=== PATIENT | male | born 1945 | race Hispanic/Latino ===

== ENCOUNTER 2020-05-21 14:16 | Emergency (ER) | payer OTHER ==
[~2020-05-21] VITALS: Ht 167.6 cm; Wt 79.8 kg
[2020-05-21] MEDS ORDERED: SODIUM CHLORIDE 0.9% 1000ML 1,000 ML IV STA ×2 (15:12→16:13)
[2020-05-21] MEDS ORDERED: ALBUTEROL SULFATE HFA 8GM INHALATION AEROSOL INH PRN (15:15)
[2020-05-21] MEDS ORDERED: ASPIRIN 81 MG CHEW TAB PO ONE (15:15)
[2020-05-21] MEDS ORDERED: ACETAMINOPHEN 325 MG TAB PO ONE ×2 (15:15→18:00)
--- NOTE | 2020-05-21 15:19 | Emergency Department Note ---
History of Present Illnes History of Present Illness Chief Complaint: COVID PUI History of Present Illness This is a 74 year old male c/o diarrhea sob x [address] Hunter's office had covid test pending results placed on omnicef and levaquin PATIENT IN FROM HOME WITH COMPLAINTS OF DIARRHEA AND SHORTNESS OF BREATH X 1 WEEK; STATES WAS SEEN AT DR HUNTER'S OFFICE AND HAD COVID SWAB AND WAS GIVEN ABX; PATIENT APPEARS IN NO DISTRESS, WAS GIVEN OSELTAMIVIR AND LEVAQUIN. Historian: Patient Arrival Mode: Car Radiation: Denies non-radiation, Denies back, Denies neck, Denies extremity, Denies abdomen, Denies periumbilical, Denies flank, Denies proximal, Denies distal, Denies other Onset quality: gradual Duration (how long): week(s) (1) Timing of current episode: constant Progression: worsening Context: Denies recent illness, Denies recent surgery, Denies recent immobilization, Denies recent travel, Denies trauma/injury, Denies new medications, Denies hx of DVT/PE, Denies non-compliance w/ medications, Denies other Relieving factors: none Exacerbating factors: none Associated symptoms: Denies denies other symptoms, Denies confusion, Denies chest pain, Denies cough, Denies diaphoresis, Denies fever/chills, Denies headaches, Denies loss of appetite, Denies malaise, Denies nausea/vomiting, Denies rash, Denies seizure, Denies shortness of breath, Denies syncope, Denies weakness, Denies other Treatments prior to arrival: none Past Medical/Family History Physician Review I have reviewed the patient's past medical and family history. Any updates have been documented here. Past Medical History Recent Fever: Yes Clinical Suspicion of Infectio: Yes New/Unexplained Change in Ment: No Past Medical History: Hypertension, Diabetes, Hyperlipedemia Past Surgical History: None Social History Smoking Cessation: Never Smoker Alcohol Use: None Any Illegal Drug Use: No TB Exposure/Symptoms: No Physically hurt or threatened: No Family History Family history of heart diseas: No Other Any Pre-Existing Lines (PICC,: No Review of Systems Review of Systems Constitutional: Reports fever EENTM: Reports no symptoms Cardiovascular: Reports no symptoms Respiratory: Reports cough, Reports pain with cough, Reports dyspnea Gastrointestinal: Reports no symptoms Genitourinary: Reports no symptoms Musculoskeletal: Reports no symptoms Integumentary: Reports no symptoms Neurological: Reports no symptoms Psychological: Reports no symptoms Endocrine: Reports no symptoms Hematological/Lymphatic: Reports no symptoms Physical Exam Related Data Allergies: Coded Allergies: No Known Allergies (Unverified , 05/21/20) Triage Vital Signs Vital Signs Date Time Temp Pulse Resp B/P (MAP) Pulse Ox O2 Delivery O2 Flow Rate FiO2 05/21/20 15:05 102.2 111 20 124/69 94 Room Air Vital signs reviewed: Yes Physical Exam CONSTITUTIONAL Constitutional: Present well-developed, Present well-nourished, Present other (noted fever) HENT HENT: Present normocephalic, Present atraumatic, Present oropharynx clear/moist, Present nose normal HENT L/R: Present left ext ear normal, Present right ext ear normal EYES Eyes: Reports PERRL, Reports conjunctivae normal NECK Neck: Present ROM normal PULMONARY Pulmonary: Present effort normal, Present other (pleural rub noted thoughout); Absent breath sounds normal (deminished lungs sound lower lobes ), Absent respiratory distress CARDIOVASCULAR Cardiovascular: Present regular rhythm, Present heart sounds normal, Present capillary refill normal, Present normal rate GASTROINTESTINAL Abdominal: Present soft, Present nontender, Present bowel sounds normal GENITOURINARY Genitourinary: Present exam deferred SKIN Skin: Present warm, Present dry MUSCULOSKELETAL Musculoskeletal: Present ROM normal NEUROLOGICAL Neurological: Present alert, Present oriented x 3, Present no gross motor or sensory deficits PSYCHOLOGICAL Psychological: Present mood/affect normal, Present judgement normal Results Laboratory Laboratory Laboratory Tests Test 05/21/20 18:10 05/21/20 15:17 05/21/20 15:00 Group A Streptococcus Screen Negative (NEGATIVE) White Blood Count 8.08 x10e3/uL (4.8-10.8) Red Blood Count 4.05 x10e6/uL (4.3-5.7) Hemoglobin 11.1 g/dL (14.0-18.0) Hematocrit 34.4 % (38.2-49.6) Mean Corpuscular Volume 84.9 fL (81-99) Mean Corpuscular Hemoglobin 27.4 pg (28-32) Mean Corpuscular Hemoglobin Concent 32.3 g/dL (31-35) Red Cell Distribution Width 14.5 % (11.7-14.4) Platelet Count 265 x10e3/uL (140-360) Neutrophils (%) (Auto) 79.2 % (38.7-80.0) Lymphocytes (%) (Auto) 10.1 % (18.0-39.1) Monocytes (%) (Auto) 9.7 % (4.4-11.3) Eosinophils (%) (Auto) 0.0 % (0.0-6.0) Basophils (%) (Auto) 0.1 % (0.0-1.0) Neutrophils # (Auto) 6.4 (2.1-6.9) Lymphocytes # (Auto) 0.8 (1.0-3.2) Monocytes # (Auto) 0.8 (0.2-0.8) Eosinophils # (Auto) 0.0 (0.0-0.4) Basophils # (Auto) 0.0 (0.0-0.1) Absolute Immature Granulocyte (auto 0.07 x10e3/uL (0-0.1) Prothrombin Time 13.2 seconds (11.9-14.5) Prothromb Time International Ratio 0.95 Activated Partial Thromboplast Time 37.7 seconds (23.8-35.5) Sodium Level 134 mmol/L (136-145) Potassium Level 3.5 mmol/L (3.5-5.1) Chloride Level 97 mmol/L (98-107) Carbon Dioxide Level 25 mmol/L (22-29) Anion Gap 15.5 mmol/L (8-16) Blood Urea Nitrogen 17 mg/dL (7-26) Creatinine 1.20 mg/dL (0.72-1.25) Estimat Glomerular Filtration Rate 59 ML/MIN (60-) BUN/Creatinine Ratio 14 (6-25) Glucose Level 139 mg/dL (74-118) Lactic Acid Level 2.2 mmol/L (0.5-2.0) Calcium Level 9.2 mg/dL (8.4-10.2) Total Bilirubin 0.5 mg/dL (0.2-1.2) Aspartate Amino Transf (AST/SGOT) 47 IU/L (5-34) Alanine Aminotransferase (ALT/SGPT) 31 IU/L (0-55) Alkaline Phosphatase 64 IU/L (40-150) Creatine Kinase 233 IU/L (30-200) Creatine Kinase MB 1.00 ng/mL (0-5.0) Troponin I < 0.001 ng/mL (0-0.300) B-Type Natriuretic Peptide 13.3 pg/mL (0-100) Total Protein 8.1 g/dL (6.5-8.1) Albumin 3.0 g/dL (3.5-5.0) Globulin 5.1 g/dL (2.3-3.5) Albumin/Globulin Ratio 0.6 (0.8-2.0) Lipase 19 U/L (8-78) Influenza Virus Types A,B Antigen Negative (NEGATIVE) Laboratory Tests Test 05/21/20 15:17 05/21/20 15:00 Group A Streptococcus Screen Negative (NEGATIVE) White Blood Count 8.08 x10e3/uL (4.8-10.8) Red Blood Count 4.05 x10e6/uL (4.3-5.7) Hemoglobin 11.1 g/dL (14.0-18.0) Hematocrit 34.4 % (38.2-49.6) Mean Corpuscular Volume 84.9 fL (81-99) Mean Corpuscular Hemoglobin 27.4 pg (28-32) Mean Corpuscular Hemoglobin Concent 32.3 g/dL (31-35) Red Cell Distribution Width 14.5 % (11.7-14.4) Platelet Count 265 x10e3/uL (140-360) Neutrophils (%) (Auto) 79.2 % (38.7-80.0) Lymphocytes (%) (Auto) 10.1 % (18.0-39.1) Monocytes (%) (Auto) 9.7 % (4.4-11.3) Eosinophils (%) (Auto) 0.0 % (0.0-6.0) Basophils (%) (Auto) 0.1 % (0.0-1.0) Neutrophils # (Auto) 6.4 (2.1-6.9) Lymphocytes # (Auto) 0.8 (1.0-3.2) Monocytes # (Auto) 0.8 (0.2-0.8) Eosinophils # (Auto) 0.0 (0.0-0.4) Basophils # (Auto) 0.0 (0.0-0.1) Absolute Immature Granulocyte (auto 0.07 x10e3/uL (0-0.1) Prothrombin Time 13.2 seconds (11.9-14.5) Prothromb Time International Ratio 0.95 Activated Partial Thromboplast Time 37.7 seconds (23.8-35.5) Sodium Level 134 mmol/L (136-145) Potassium Level 3.5 mmol/L (3.5-5.1) Chloride Level 97 mmol/L (98-107) Carbon Dioxide Level 25 mmol/L (22-29) Anion Gap 15.5 mmol/L (8-16) Blood Urea Nitrogen 17 mg/dL (7-26) Creatinine 1.20 mg/dL (0.72-1.25) Estimat Glomerular Filtration Rate 59 ML/MIN (60-) BUN/Creatinine Ratio 14 (6-25) Glucose Level 139 mg/dL (74-118) Lactic Acid Level 2.2 mmol/L (0.5-2.0) Calcium Level 9.2 mg/dL (8.4-10.2) Total Bilirubin 0.5 mg/dL (0.2-1.2) Aspartate Amino Transf (AST/SGOT) 47 IU/L (5-34) Alanine Aminotransferase (ALT/SGPT) 31 IU/L (0-55) Alkaline Phosphatase 64 IU/L (40-150) Creatine Kinase 233 IU/L (30-200) Creatine Kinase MB 1.00 ng/mL (0-5.0) Troponin I < 0.001 ng/mL (0-0.300) B-Type Natriuretic Peptide 13.3 pg/mL (0-100) Total Protein 8.1 g/dL (6.5-8.1) Albumin 3.0 g/dL (3.5-5.0) Globulin 5.1 g/dL (2.3-3.5) Albumin/Globulin Ratio 0.6 (0.8-2.0) Lipase 19 U/L (8-78) Influenza Virus Types A,B Antigen Negative (NEGATIVE) Lab results reviewed: Yes Laboratory comments rept lactic 1.3 Imaging Impressions Patient Name: JULI SOFIA MR #: [id number] : 1945 Age/Sex: 74/M Req #: [id number] Adm Physician: Ordered by: ROBERT PAYNE MD, MD Report #: [id number] Location: ER Room/Bed: Procedure: [id number] DX/CHEST SINGLE (PORTABLE) Exam Date: 05/21/20 Exam Time: 1530 REPORT STATUS: Signed EXAMINATION: CHEST SINGLE (PORTABLE) INDICATION: ^Y ^ERMD ORDER ^[id number] ^1530 ^Y COMPARISON: None FINDINGS: AP view TUBES and LINES: None. LUNGS: Lungs are well inflated. Diffuse bilateral lower lobe dense consolidations. Mild hilar reticular opacity with peribronchial wall thickening. PLEURA: No pleural effusion or pneumothorax. HEART AND MEDIASTINUM: Mild enlargement of the cardiac silhouette. Atherosclerotic calcifications of the aortic arch. BONES AND SOFT TISSUES: No acute osseous lesion. Soft tissues are unremarkable. UPPER ABDOMEN: No free air under the diaphragm. IMPRESSION: Bilateral reticular opacities with dense consolidations in the lower lobes suggestive of interstitial edema with or without superimposed multifocal pneumonia. Recommend follow-up chest radiograph after diuresis. Signed by: Dr. Sari Castanon M.D. on 05/21/2020 4:55 PM Procedures 12 Lead ECG Interpretation ECG Interpretation : ECG: ECG 1 [employer] Architect: Interpreted by ED physician Date: May 21, 2020 Time: 15:11 Prior ECG tracings: reviewed Rhythm: sinus tachycardia Rate: tachycardia BPM: 107 QRS axis: left Assessment & Plan Medical Decision Making MDM This is a 74 year old male c/o cp diarrhea sob x [address] Hunter's office had covid test pending results placed on omnicef and levaquin ordered lab cxr ekg medicated w/ rocephin zithromax tylenol albuterol asa d/d pne / covid / viral illness / electrolyte imbalance / sepsis / acs Reassessment Reassessment 1505 hr 111 temp 102.2 o2 sat 94% rm air suspect sepsis source resp lactic and blood cultures ordered 1515 pt medicated w/ rocephin zithromax 1603 severe sepsis 1st lactic 2.2 2nd ns bolus ordered 2nd lactic 1.3 spoke w/ Dr Scott [place] [facility] [place] [facility] [place] medicated w/ lovenox 8ou sq given per request Assessment & Plan Final Impression: (1) Sepsis (2) Pneumonia Depart Disposition: TRANS TO OTHER [facility] Last Vital Signs Date Time Temp Pulse Resp B/P (MAP) Pulse Ox O2 Delivery O2 Flow Rate FiO2 05/21/20 15:05 102.2 111 20 124/69 94 Room Air Medications in the ED Sodium Chloride 1,000 ml @ 0 mls/hr Q0M STAT IV ; Start 05/21/20 at 15:12; Stop 05/21/20 at 15:16; Status DC Ceftriaxone Sodium 50 ml @ 50 mls/hr ONCE STAT IV ; Start 05/21/20 at 15:12; Stop 05/21/20 at 16:11; Status UNV Azithromycin 250 ml @ 125 mls/hr ONCE STAT IV ; Start 05/21/20 at 15:12; Stop 05/21/20 at 17:11; Status UNV Acetaminophen 975 mg ONCE ONCE PO ; Start 05/21/20 at 15:15; Stop 05/21/20 at 15:16; Status UNV Albuterol INH RQ4H PRN INH SHORTNESS OF BREATH; Start 05/21/20 at 15:15; Stop 06/20/20 at 15:14; Status UNV Aspirin 81 mg PRN ONCE PO ; Start 05/21/20 at 15:15; Stop 05/21/20 at 15:16; Status UNV ROBERT PAYNE May 21, 2020 15:19
[2020-05-21] MEDS ORDERED: CEFTRIAXONE SOD 1 GM/NS 50 ML 50 ML IV ONE (15:45)
[2020-05-21 15:46] LABS: BASOPHILS % 0.1 % (0.0-1.0); HEMATOCRIT 34.4 % (38.2-49.6); HEMOGLOBIN 11.1 g/dL (14.0-18.0); LYMPHOCYTES # (AUTO) 0.8 (1.0-3.2); LYMPHOCYTES % 10.1 % (18.0-39.1); MEAN CORPUSCULAR HEMOGLOBIN 27.4 pg (28-32); MEAN CORPUSCULAR HGB CONC 32.3 g/dL (31-35); MEAN CORPUSCULAR VOLUME 84.9 fL (81-99); MONOCYTES # (AUTO) 0.8 (0.2-0.8); MONOCYTES % 9.7 % (4.4-11.3); NEUTROPHILS # (AUTO) 6.4 (2.1-6.9); NEUTROPHILS % 79.2 % (38.7-80.0); PLATELET COUNT 265 x10e3/uL (140-360); RED BLOOD COUNT 4.05 x10e6/uL (4.3-5.7); RED CELL DISTRIBUTION WIDTH 14.5 % (11.7-14.4)
[2020-05-21 15:57] LABS: INR 0.95; PROTHROMBIN TIME 13.2 seconds (11.9-14.5)
[2020-05-21 15:58] LABS: PARTIAL THROMBOPLASTIN TIME 37.7 seconds (23.8-35.5)
[2020-05-21 16:07] LABS: ALANINE AMINOTRANSFERASE 31 IU/L (0-55); ALBUMIN/GLOBULIN RATIO 0.6 (0.8-2.0); ALKALINE PHOSPHATASE 64 IU/L (40-150); ANION GAP 15.5 mmol/L (8-16); BLOOD UREA NITROGEN 17 mg/dL (7-26); BUN/CREATININE RATIO 14 (6-25); CALCIUM 9.2 mg/dL (8.4-10.2); CARBON DIOXIDE 25 mmol/L (22-29); CHLORIDE 97 mmol/L (98-107); CREATINE KINASE 233 IU/L (30-200); EST GLOMERULAR FILTRATION RATE 59 ML/MIN (60-); GLUCOSE 139 mg/dL (74-118); LIPASE 19 U/L (8-78); POTASSIUM 3.5 mmol/L (3.5-5.1); SODIUM 134 mmol/L (136-145)
[2020-05-21 16:10] LABS: B-TYPE NATRIURETIC PEPTIDE2 13.3 pg/mL (0-100)
[2020-05-21] MEDS ORDERED: AZITHROMYCIN 500MG/NS 250 ML 250 ML IV ONE (16:15)
--- NOTE | 2020-05-21 16:59 | Diagnostic Imaging Report ---
EXAMINATION: CHEST SINGLE (PORTABLE) INDICATION: ^Y ^ERMD ORDER ^[id number] ^1530 ^Y COMPARISON: None FINDINGS: AP view TUBES and LINES: None. LUNGS: Lungs are well inflated. Diffuse bilateral lower lobe dense consolidations. Mild hilar reticular opacity with peribronchial wall thickening. PLEURA: No pleural effusion or pneumothorax. HEART AND MEDIASTINUM: Mild enlargement of the cardiac silhouette. Atherosclerotic calcifications of the aortic arch. BONES AND SOFT TISSUES: No acute osseous lesion. Soft tissues are unremarkable. UPPER ABDOMEN: No free air under the diaphragm. IMPRESSION: Bilateral reticular opacities with dense consolidations in the lower lobes suggestive of interstitial edema with or without superimposed multifocal pneumonia. Recommend follow-up chest radiograph after diuresis. Signed by: Dr. Sari Castanon M.D. on 05/21/2020 4:55 PM
[2020-05-21] MEDS ORDERED: DEXAMETHASONE SOD PHOS 10 MG/1 ML VIAL IV ONE (18:00)
[2020-05-21] MEDS ORDERED: ENOXAPARIN INJ 80 MG/0.8 ML SYR SC STA (18:35)
[2020-05-21] MEDS ORDERED: DEXAMETHASONE SOD PHOS INJ 4 MG/ML VIAL ONE (21:09)
[2020-05-21 22:20] VITALS: BP 135/69
== END 2020-05-22 00:15 | disposition other institution (70) ==
LOC: ER 15:20
DX: U07.1 COVID-19 (principal); A41.9 Sepsis, unspecified organism; J18.9 Pneumonia, unspecified organism; R50.9 Fever, unspecified; I10 Essential (primary) hypertension; E11.65 Type 2 diabetes mellitus with hyperglycemia; E78.5 Hyperlipidemia, unspecified
CPT/HCPCS: 36415; 71045; 80053; 82550; 82553; 82948; 83518; 83605; 83690; 83880; 84484; 85025; 85610; 85730; 87040; 87070; 87400; 87635; 93005; 99284; J0456; J0696; J1100; J1650; J7030

== ENCOUNTER → 2020-06-22 | Outpatient (CLI) | payer OTHER ==
--- NOTE | 2020-06-22 08:53 | Diagnostic Imaging Report ---
X-ray chest PA and lateral History: Covid pneumonia Comparison: 05/21/2020 Findings: Central airways unremarkable. Cardiomegaly. Atherosclerotic aorta. No pleural effusion. No pneumothorax. Bilateral diffuse interstitial prominence in a patchy fashion more so in the central zones. Overall worse than the previous exam. Degenerative changes of the thoracic spine. Upper abdomen unremarkable. Impression: Bilateral interstitial infiltrates worse than the comparison x-ray. Signed by: Christian Blas MD on 06/22/2020 8:49 AM
== END ==
LOC: RAD 07:27
PROVIDERS: ATTEND Internal Medicine
DX: U07.1 COVID-19 (principal); J12.89 Other viral pneumonia
CPT/HCPCS: 71046

== ENCOUNTER → 2021-07-13 | Outpatient (CLI) | payer OTHER | LOC: RAD 12:50 | PROVIDERS: ATTEND Internal Medicine | DX: M47.812 Spondylosis without myelopathy or radiculopathy, cervical region (principal) | CPT/HCPCS: 72050 ==

== ENCOUNTER → 2021-08-23 | Day surgery (SDC) | payer OTHER ==
[~2021-08-23] MED LIST: ACTOS15 MG PO; ATORVASTATIN CA10 MG PO; BASAGLAR K100 UNIT/1 SQ; FEROSUL325 MG PO; FOLIC ACID PO; LOSARTAN POTAS100 MG PO; NOVOLOG SQ; OR PHACO EYE KIT ONE; OZEMPIC0.25 MG/0. SC; PREOP PHACO EYE KIT ONE; XIGDUO XR 5 MG1 EACH PO
[2021-08-23 15:00] VITALS: BP 120/63
== END | disposition home or self-care (01) ==
LOC: OR 12:08
PROVIDERS: ATTEND Ophthalmology
DX: H25.12 Age-related nuclear cataract, left eye (principal); E11.9 Type 2 diabetes mellitus without complications; I10 Essential (primary) hypertension; E78.5 Hyperlipidemia, unspecified; Z01.812 Encounter for preprocedural laboratory examination; Z20.822 Contact with and (suspected) exposure to COVID-19; Z79.4 Long term (current) use of insulin
CPT/HCPCS: 36415; 82948; U0002

== ENCOUNTER → 2021-09-06 | Day surgery (SDC) | payer OTHER ==
[~2021-09-06] MED LIST changes: +DEXTROSE 5% 250ML 250 ML IV ONE; +FENTANYL CITRATE/PF 100MCG/2 ML INJ ONE; +MIDAZOLAM HCL 2 MG/2 ML VIAL ONE
[2021-09-06 13:00] VITALS: BP 132/64
== END | disposition home or self-care (01) ==
LOC: OR 08:00
PROVIDERS: ATTEND Ophthalmology
DX: H25.11 Age-related nuclear cataract, right eye (principal); I44.0 Atrioventricular block, first degree; E11.9 Type 2 diabetes mellitus without complications; I10 Essential (primary) hypertension; E78.5 Hyperlipidemia, unspecified; M54.9 Dorsalgia, unspecified; M54.2 Cervicalgia; H91.90 Unspecified hearing loss, unspecified ear; Z01.812 Encounter for preprocedural laboratory examination; Z20.822 Contact with and (suspected) exposure to COVID-19; Z79.4 Long term (current) use of insulin; Z86.16 Personal history of COVID-19; Z87.01 Personal history of pneumonia (recurrent)
CPT/HCPCS: J2250; J3010; J7070; U0002

== ENCOUNTER → 2024-06-10 | Outpatient (REF) | payer OTHER ==
[~2024-06-10] MED LIST changes: -DEXTROSE 5% 250ML 250 ML IV ONE; -FENTANYL CITRATE/PF 100MCG/2 ML INJ ONE; -MIDAZOLAM HCL 2 MG/2 ML VIAL ONE; -OR PHACO EYE KIT ONE; -PREOP PHACO EYE KIT ONE
== END ==
LOC: RAD 09:05
PROVIDERS: ATTEND Family Medicine
DX: E11.51 Type 2 diabetes mellitus with diabetic peripheral angiopathy without gangrene (principal); R60.0 Localized edema
CPT/HCPCS: 93925; 93970